=== PATIENT | male | born 1955 | race Caucasian/White ===

== ENCOUNTER 2019-07-20 07:32 | Outpatient (CLI) | payer BC, SELFPAY ==
--- NOTE | 2019-07-20 07:52 | NMCV_ITS ---
NM maria elena perf SPECT r/s* [id number] José Cadena Age: 64 Gender: M : 1955 Exam Date: 07/20/2019 08:27 Ordering Phys: Ebonie Appiah MD ([email or web address]) Technologist: PRATIK Duran Exam [facility]: [facility] Indications: SOB STRESS TEST Please [facility] IMAGE PROTOCOL Rest/Stress 1 Exercise Day Radiopharmaceutical Dose (mCi) Administration Site Administered by Rest: Tc-99m 10.7 IV PRATIK Aburto Sestamibi Stress:Tc-99m 32.6 IV PRATIK Aburto Sestamibi Rest: 20-Jul-2019 60 Discovery 630 Stress: 20-Jul-2019 15 Discovery 630 Radiopharmaceutical was injected at 86 % maximum heart rate. Images obtained in supine and prone position. SPECT RESULTS Technical Quality: Excellent Raw Data Analysis: Normal Image Corrections: No attenuation or motion correction applied Summed Stress Score: 2 Summed Rest Score: 3 Summed Difference Score: 0 PERFUSION FINDINGS Medium-sized area of persistently decreased tracer uptake noted in basal to distal inferior wall suggestive of old myocardial infarction versus scarring. Medium-sized area of decreased tracer uptake noted in basal to mid anterior wall on the rest images which improved over stress images suggestive of artifact. FUNCTIONAL RESULTS (calculated via Gated SPECT) Stress Image LV EF (%): 57 Stress EDV (mL):89 TID: 0.83 Stress ESV (mL):38 Rest Image LV EF (%): 57 FUNCTIONAL FINDINGS: There is normal left ventricular systolic function. IMPRESSIONS Medium-sized area of persistently decreased tracer uptake noted in basal to distal inferior wall suggestive of old myocardial infarction versus scarring. Medium-sized area of decreased tracer uptake noted in basal to mid anterior wall on the rest images which improved over stress images suggestive of artifact. This study is negative for ischemia. EKG segment will be documented separately. Ebonie Appiah MD (Electronically Signed) Final Date: 20 Jul 2019 17:46 S
--- NOTE | 2019-07-20 07:52 | ECG_ITS ---
NAME OF STUDY: EXERCISE SESTAMIBI STRESS TEST INDICATION: Chest Pain EXERCISE DATA: The patient was exercised by Carlin protocol. Baseline heart rate was 70 beats per minute. Baseline blood pressure was 137/81 millimeters of mercury. Target heart rate was 157 beats per minute. Maximum heart rate achieved was 143, which was 91 % of the target heart rate. Maximum blood pressure was 210/81 millimeters of mercury. Total exercise time was 5 minutes 30 seconds. Maximum METs achieved was 7.0, maximum VO2 was 24.5. The reason for ending the test was maximum effort achieved. The patient complained of shortness of breath during the stress test, which then resolved at the end of the test. ELECTROCARDIOGRAM: BASELINE: Sinus rhythm, normal axis, no significant ST-T changes at the baseline noted. EXERCISE: At the peak exercise level, no significant ST-T changes suggestive of ischemia noted. RECOVERY: During the recovery period, heart rate dropped appropriately. No significant ST-T changes in the recovery suggestive of ischemia noted. CONCLUSION: 1. Exercise capacity fair. 2. Heart rate response was appropriate. 3. Blood pressure response was hypertensive. 4. Symptoms not suggestive of ischemia. 5. Electrocardiogram portion of the stress test was not suggestive of ischemia. 6. Nuclear scan will be documented separately. Electronically Signed On 07-21-2019 19:07:22 CDT by Ebonie Appiah M.D. [id number]
[2019-07-20 07:53] VITALS: BMI 27.7
[2019-07-20 09:24] VITALS: BP 189/72; PULSE 90
== END 2019-07-20 07:33 | disposition home or self-care (01) ==
LOC: RAD 07:38
PROVIDERS: PCP Family Medicine; Visit Provider Internal Medicine Cardiovascular Disease
DX: R07.9 Chest pain, unspecified (principal); R06.02 Shortness of breath
CPT/HCPCS: 78452; 93017; A9500

== ENCOUNTER 2019-07-24 11:00 | Outpatient (CLI) | payer BC, SELFPAY ==
--- NOTE | 2019-07-24 11:06 | USCV_ITS ---
José Cadena Age: 64 Gender: M : 1955 Exam Date: 07/24/2019 11:16 Ordering Phys: Ebonie Appiah MD ([email or web address]) Technologist: Pooja Rock [place] [facility] [place]: SOB BP: 110 / 63 HR: 75 Rhythm: Sinus Technical Quality: Adequate MEASUREMENTS (Male / Female) Normal Values 2D ECHO LV Chamber Size 3.8 cm RV Chamber Size 3.6 cm LVOT Diameter 2.0 cm LV Ejection Fraction MOD 2C 62.4 % LV Ejection Fraction 2C AL 61.9 % LA Diameter 4.3 cm LA Width 3.7 cm LA Height 4.8 cm RA Width 3.8 cm RA Height 3.2 cm Aorta at Sinotubular Diameter 3.0 cm M-MODE LV Diastolic Diameter MM 5.4 cm 4.2 - 5.9 / 3.9 - 5.3 cm LV Systolic Diameter MM 3.4 cm LV Ejection Fraction MM Teich 66.6 % IVS Diastolic Thickness MM 0.7 cm 0.6 - 1.0 / 0.6 - 0.9 cm IVS Systolic Thickness MM 0.9 cm LVPW Diastolic Thickness MM 0.9 cm 0.6 - 1.0 / 0.6 - 0.9 cm LVPW Systolic Thickness MM 1.4 cm Aortic Annulus Diameter 3.6 cm LA Ao Ratio MM 1.2 MV E Point Septal Separation 1.1 cm DOPPLER AV Peak Velocity 119.0 cm/s LVOT Peak Velocity 94.0 cm/s AV Area Cont Eq vti 2.6 cm squared AV Area Cont Eq pk 2.6 cm squared MV Area PHT 3.5 cm squared Mitral E to A Ratio 1.0 MV E' Velocity 12.0 cm/s Mitral E to MV E' Ratio 6.7 Mitral E to LV E' Lateral Ratio 6.2 Mitral E to LV E' Septal Ratio 7.2 TR Peak Velocity 188.0 cm/s TR Peak Gradient 14.2 mmHg TV Peak E Velocity 46.0 cm/s PV Peak Velocity 97.0 cm/s RV Acceleration Time 0.1 s RV Ejection Time 0.4 s RV AcT/ET 0.3 FINDINGS Left Ventricle Normal left ventricular cavity size. Normal left ventricular systolic function. No regional wall motion abnormalities. Left ventricular ejection fraction is estimated at 55 %. Grade I/IV diastolic dysfunction (abnormal relaxation filling pattern), normal to mildly elevated filling pressures. Right Ventricle The right ventricle is normal in size and function. RVSP could not be calculated due to incomplete tricuspid regurgitation velocity profile. Right Atrium The right atrium is normal in size. Left Atrium The left atrium is normal in size. Mitral Valve Mildly thickened mitral valve. No mitral valve stenosis. Mild mitral valve regurgitation. Aortic Valve Mild aortic valve calcification. No aortic valve stenosis. Trace aortic valve regurgitation. Tricuspid Valve Structurally normal tricuspid valve without significant stenosis or regurgitation. Pulmonary artery systolic pressure is normal. Pulmonic Valve Structurally normal pulmonic valve without significant stenosis. There is no pulmonic regurgitation. Pericardium Normal pericardium without effusion. Aorta Normal ascending aorta dimension. CONCLUSIONS 1-Normal left ventricular cavity size. Normal left ventricular systolic function. No regional wall motion abnormalities. Left ventricular ejection fraction is estimated at 55 %. Grade I/IV diastolic dysfunction (abnormal relaxation filling pattern), normal to mildly elevated filling pressures. 2-Mildly thickened mitral valve. No mitral valve stenosis. Mild mitral valve regurgitation. 3-Mild aortic valve calcification. No aortic valve stenosis. Trace aortic valve regurgitation. 4-Structurally normal tricuspid valve without significant stenosis or regurgitation. Pulmonary artery systolic pressure is normal. 5-There is no pericardial effusion. 6-The right ventricle is normal in size and function. RVSP could not be calculated due to incomplete tricuspid regurgitation velocity profile. 7-Right atrial pressure is around 5 mm of mercury. 8-When compared to the prior echocardiogram dated 02/23/2015 there appeared to be mild mitral valve regurgitation Ebonie Appiah MD (Electronically Signed) Final Date: 24 July 2019 17:43 S
== END 2019-07-24 11:01 | disposition home or self-care (01) ==
LOC: RAD 11:04
PROVIDERS: PCP Family Medicine; Visit Provider Internal Medicine Cardiovascular Disease
DX: R06.02 Shortness of breath (principal); I08.0 Rheumatic disorders of both mitral and aortic valves
CPT/HCPCS: 93306

== ENCOUNTER 2019-09-29 12:44 | Outpatient (CLI) | payer BC, SELFPAY ==
--- NOTE | 2019-09-29 13:00 | MR_ITS ---
WS: [id number] MRI LEFT KNEE HISTORY: M25.562 Pain in left knee COMPARISON: None available. Anterior cruciate ligament: Increased signal throughout the ACL. Partial tear suspected in the proxim al tendon. There is loss of the normal fibers of the ligament. Posterior cruciate ligament: Intact. Medial collateral ligament: Increased fluid signal on both sides of the MCL. Partial tear of the prox imal medial collateral ligament. Posterior lateral corner structures: Intact. Medial menisci: Abnormal signal along the superior articular surface of the posterior horn extends to wards the free edge. Blunting of the free edge. Lateral meniscus: Intact. Normal signal, size and shape. Extensor mechanism: Distal quadriceps tendon and patellar tendons are intact. Fluid and soft tissue: There is a large suprapatellar joint effusion. Large amount of edema surrounds the knee. There is fluid extending into the infrapatellar fat pad and a large complex Kincaid's cyst. Kincaid's cyst may be partially ruptured as there is fluid extending distal from the form Kincaid's cyst. Osseous and articular structures: Patellofemoral compartment: Normal. Medial compartment: Mild narrowing of the medial compartment. Increased signal in the central meniscu s corresponds to the abnormal signal in the posterior horn involving the free edge. There is thinning and fissuring of the cartilage with only minimal joint space narrowing. No marrow edema. Lateral compartment: Full-thickness cartilage defect along the central femoral condyle and central ti bial plateau. Small subchondral cyst in the lateral tibial metaphysis. Lobulated complex cystic mass at the articulation between the proximal tibia and fibula measures 13 m m. MR/MR knee LT wo con* [id number] IMPRESSION: 1. Abnormal signal in the ACL consistent proximal partial tear. 2. Large joint effusion with a large amount of soft tissue edema extending int o the infrapatellar fat pad. 3. Large Kincaid's cyst with partial rupture. 4. Abnormal posterior horn medial meniscus consistent with significant fraying and tears along the superior articular surface extending to the free edge. 5. Small osteochondral defects weightbearing surface of the lateral femoral co ndyle and adjacent lateral tibial plateau. 6. Partial tear proximal MCL. 7. Complex ganglion versus bursal distention between the proximal tibiofibular articulation.
== END 2019-09-29 12:45 | disposition home or self-care (01) ==
PROVIDERS: PCP Family Medicine; Visit Provider Nurse Practitioner Family
DX: M25.462 Effusion, left knee (principal); R60.0 Localized edema; M71.22 Synovial cyst of popliteal space [Baker], left knee; S83.419A Sprain of medial collateral ligament of unspecified knee, initial encounter; X58.XXXA Exposure to other specified factors, initial encounter
CPT/HCPCS: 73721

== ENCOUNTER 2019-11-13 14:08 | Outpatient (CLI) | payer BC, SELFPAY ==
--- NOTE | 2019-11-13 14:00 | CT_ITS ---
WS: [id number] CT CHEST TECHNIQUE: Noncontrast CT of the chest with coronal and sagittal reformatted images. CLINICAL INFORMATION: right pleural effusion COMPARISON: None. DLP: 918.[address] scans at [facility] use at least one of these dose optimization techniques: automat ed exposure control; mA and/or kV adjustment per patient size (includes targeted exams where dose is matched to clinical indication); or iterative reconstruction. FINDINGS: Both lungs are well aerated. No acute pulmonary infiltrates. Subsegmental atelectasis right lower lob e. Small right pleural effusion. Acute appearing fracture right fifth rib anterolaterally. No displac ement. Thyroid gland is normal. No mediastinal or hilar lymphadenopathy. Coronary calcification. Cholelithia sis. Adrenal glands are normal. No axillary lymphadenopathy. Subpleural nodule right middle lobe josh uring 4 mm. Additional tiny noncalcified nodule left lower lobe measuring 3 mm. Postoperative changes right shoulder. CT/CT chest wo con [id number] IMPRESSION: 1. Small right pleural effusion with subsegmental atelectasis right lower lobe . 2. Acute appearing nondisplaced right fifth rib fracture anteriorly and latera lly. 3. Mild chronic emphysematous changes. 4. No mediastinal or hilar lymphadenopathy. 5. Cholelithiasis partially visualized. 6. A few subcentimeter noncalcified pulmonary nodules. Recommend 12 month foll ow-up.
== END 2019-11-13 14:09 | disposition home or self-care (01) ==
LOC: RAD 14:12
PROVIDERS: PCP Family Medicine; Visit Provider Registered Nurse
DX: J90 Pleural effusion, not elsewhere classified (principal); S22.31XA Fracture of one rib, right side, initial encounter for closed fracture; X58.XXXA Exposure to other specified factors, initial encounter; K80.20 Calculus of gallbladder without cholecystitis without obstruction
CPT/HCPCS: 71250

== ENCOUNTER → 2020-04-01 08:36 | Outpatient (BNVA) | payer BC, SELFPAY | PROVIDERS: PCP Family Medicine; Visit Provider Podiatrist Foot & Ankle Surgery | DX: M79.671 Pain in right foot (principal); M79.672 Pain in left foot; M77.32 Calcaneal spur, left foot; M77.31 Calcaneal spur, right foot | CPT/HCPCS: 73630 ==

== ENCOUNTER 2020-10-03 09:04 | Day surgery (SDC) | payer BC, SELFPAY ==
[2020-10-01 09:33] VITALS: BMI 28.5
--- NOTE | 2020-10-03 09:29 | ANES.PREANE2 ---
Pre-Anesthetic Assessment Pre-Anesthetic Assessment: Height/Weight: Height 1.83 m Weight 95.254 kg Preop Diagnosis: screening colonoscopy Proposed Procedure: Operation Date: 10/03/20 10:30 Proposed Procedures p Colonoscopy 93740 Z12.11(Not Applicable) - Xiang Ferguson MD Was Beta Anel taken within 24 hours: Yes Was Clonidine taken within 24 hours: N/A Social: Social History: No alcohol and No tobacco Exam: Pre-Anes Outpt Exam: alert, oriented x 3, clear to auscultation bilaterally and regular rate & rhythm Airway: Submandibular: WNL Cervical ROM: WNL MP: 2 Dentition: Full CV/HEM: CV/HEM: CAD (stent) and HTN Metabolic: Metabolic: Hyperlipidemia Anesthetic Plan: ASA status: 3 Anesthesia: MAC Risk of > 500 ml blood loss (7ml/kg in children): No PFSH Anesthesia PFSH: Medical History ASHD (arteriosclerotic heart disease) HTN (hypertension) Hyperlipidemia Myocardial infarction Surgical History History of bilateral inguinal hernia repair History of colonoscopy S/P carpal tunnel release S/P knee surgery S/P PTCA (percutaneous transluminal coronary angioplasty) S/P shoulder surgery Family History Brother Diabetes Father CAD (coronary artery disease) Mother FHx: alpha 1 antitrypsin deficiency Social History Smoking and tobacco status: never smoked Second hand smoke exposure: No Alcohol intake: never Lives independently: Yes Household members: spouse Marital status: service: No Current occupational status: employed Current occupational exposures/hazards: No History of recent travel: No Current gender identity: Male Data Anesthesia Cardiac Studies: No Data to Display
[2020-10-03 09:32] VITALS: BP 132/92; PULSE 72; RESP 18; TEMP 36.5; O2SAT 98
--- NOTE | 2020-10-03 09:41 | W.PM.OPSFHP ---
Same Day Surgery H&P Indication for Procedure/HPI DATE OF PROCEDURE: October 03, 2020 CHIEF COMPLAINT/INDICATIONFOR SURGICAL PROCEDURE: screening colonoscopy PREOP DIAGNOSIS: screening colonoscopy PLANNED PROCEDRUE: Operation Date: 10/03/20 10:30 Proposed Procedures p Colonoscopy 97745 Z12.11(Not Applicable) - Xiang Ferguson MD Medications/Allergies* Home Medications Medication Instructions Recorded Confirmed Type aspirin 325 mg tablet 325 mg PO DAILY 05/10/19 10/03/20 History multivitamin 1 cap PO DAILY 05/10/19 10/03/20 History nitroglycerin 0.4 mg sublingual 0.4 mg SUBLINGUAL Q5M PRN 05/10/19 10/01/20 History tablet losartan 25 mg tablet 12.5 - 25 mg PO DAILY tab 09/19/20 10/03/20 History Allergies/Adverse Reactions Allergy/AdvReac Type Severity Reaction Status Date / Time No Known Allergies Allergy Verified 07/26/20 08:20 Pertinent History/Comorbid Conditions* Medical History (Updated 09/23/20 @ 23:06 by Ebonie Appiah MD) ASHD (arteriosclerotic heart disease) HTN (hypertension) Hyperlipidemia Myocardial infarction Surgical History (Updated 07/26/20 @ 08:29 by Xiang Ferguson MD) History of bilateral inguinal hernia repair History of colonoscopy S/P carpal tunnel release S/P knee surgery S/P PTCA (percutaneous transluminal coronary angioplasty) S/P shoulder surgery Family History (Updated 05/10/19 @ 08:49 by Meenu Almonte RN) FHx: alpha 1 antitrypsin deficiency Mother Diabetes Brother CAD (coronary artery disease) Father Social History Smoking and tobacco status: never smoked Second hand smoke exposure: No Alcohol intake: never Lives independently: Yes Household members: spouse Marital status: service: No Current occupational status: employed Current occupational exposures/hazards: No History of recent travel: No Current gender identity: Male Pertinent Exam Findings alert, oriented x 3 and regular rate & rhythm Recommendations Surgery/Procedure today Coding Level of Care Code Acute Pneumatic Deicer Inspector for Flavio Argueta
[2020-10-03] MEDS: sodium chloride 0.9% 1,000 ML 30 ML IV (09:52)
[2020-10-03 11:17] VITALS: BP 120/69; PULSE 70; RESP 16; TEMP 36.6; O2SAT 93
--- NOTE | 2020-10-03 11:29 | ANE.PACU2 ---
Inpatient post-anesthesia follow up: Airway intact: Yes Vital signs: Temperature 97.9 F Pulse Rate 70 Respiratory Rate 16 Blood Pressure 120/69 Pulse Oximetry 93 Oxygen Delivery Me thod Room Air Oxygen Flow Rate Fraction of Inspir ed Oxygen Hydration adequate: Yes Mental status: Baseline
[2020-10-03 11:32] VITALS: BP 137/86; PULSE 66; RESP 16; TEMP 36.5; O2SAT 99
--- NOTE | 2020-10-03 14:39 | ANE.PACU2 ---
Inpatient post-anesthesia follow up: Airway intact: Yes Vital signs: Temperature 97.7 F Pulse Rate 66 Respiratory Rate 16 Blood Pressure 137/86 Pulse Oximetry 99 Oxygen Delivery Me thod Room Air Oxygen Flow Rate Fraction of Inspir ed Oxygen Hydration adequate: Yes Nausea and vomiting: No Pain level: 1 Mental status: Baseline
== END 2020-10-03 11:55 | disposition home or self-care (01) ==
PROVIDERS: PCP Family Medicine; Visit Provider Surgery
PROC: 0DJD8ZZ Inspection of Lower Intestinal Tract, Via Natural or Artificial Opening Endoscopic (ICD-10-PCS; CPT 45378; principal; 2020-10-03 10:30)
DX: Z12.11 Encounter for screening for malignant neoplasm of colon (principal); D12.5 Benign neoplasm of sigmoid colon; I10 Essential (primary) hypertension; E78.5 Hyperlipidemia, unspecified; I25.2 Old myocardial infarction; I25.10 Atherosclerotic heart disease of native coronary artery without angina pectoris; Z95.5 Presence of coronary angioplasty implant and graft; K57.30 Diverticulosis of large intestine without perforation or abscess without bleeding
CPT/HCPCS: 45385; 88305; 96360; 96361; J2704; J7030

== ENCOUNTER 2020-12-03 07:09 | Outpatient (CLI) | payer BC, SELFPAY ==
[2020-12-03 07:35] VITALS: BMI 28.5
--- NOTE | 2020-12-03 08:51 | ECG_ITS ---
[facility] Test Date: 2020-12-03 Pat Name: José Cadena Department: Room: Gender: Male Credit Balance Specialist: : 1955 Requested By: Ebonie Appiah Order Number: [id number] Kady MD: Jazmyn Novak M.D. Interpretive Statements Name of study: Exercise sestamibi stress test Indication: Chest pain, Shortness of breath Procedural details: Baseline blood pressure of 152/87 mm Hg, heart rate 80 beats per minute and oxygen saturation of 96%. EKG showed normal sinus rhythm, normal axis with non specific T wave inversion. ??? The patient exercised for 5 minutes and 47 seconds on a [standard Carlin protocol]. Patient attained a maximum heart rate of 150 beats per minute( 96 % of the maximum predicted heart rate) with a blood pressure at the peak exercise of 208/88 mm Hg. The EKG at the peak exercise revealed sinus tachycardia with no significant ST-T wave changes. Patient did not have any chest pain or any significant arrhythmis with the exercise.??? During the recovery phase, there were no new changes. ??? Blood pressure at the end of the recovery phase was 153/76 mm Hg with a heart rate of 86 beats per minute and oxygen saturstion of 98%. ??? CONCLUSION: 1. Normal EKG response to treadmill exercise. 2. No exercise-induced chest pain or cardiac arrhythmia] 3. Good exercise tolerance, attained a maximum of 7 METs. Maximum VO2 of 24.5 ml/kg/min. 4. Baseline hypertension with normal response to exercise. 5. Perfusion scan will be documented separately. Electronically Signed On 12-17-2020 12:18:29 CDT by Jazmyn Novak M.D. [id number]
--- NOTE | 2020-12-03 08:52 | NMCV_ITS ---
NM maria elena perf SPECT r/s* [id number] José Cadena Age: 65 Gender: M : 1955 Exam Date: 12/03/2020 08:49 Ordering Phys: Ebonie Appiah MD ([email or web address]) Technologist: PRATIK Duran Exam Location: [facility] Indications: SHORTNESS OF BREATH STRESS TEST [facility] IMAGE PROTOCOL Rest/Stress 1 Exercise Day Radiopharmaceutical Dose (mCi) Administration Site Administered by Rest: Tc-99m 11.0 IV PRATIK Aburto Sestamikatia Stress:Tc-99m 32.7 IV PRATIK Aburto Sestamikatia Rest: 03-Dec-2020 60 Discovery 630 Stress: 03-Dec-2020 30 Discovery 630 Radiopharmaceutical was injected at 95 % maximum heart rate. Images obtained in supine and prone position. SPECT RESULTS Technical Quality: Excellent Raw Data Analysis: Normal Image Corrections: No attenuation or motion correction applied Summed Stress Score: 4 Summed Rest Score: 6 Summed Difference Score: 1 PERFUSION FINDINGS There is a small incisor. Defect noted inferior wall that improves on stress. This is secondary to attenuation artifact. No evidence of ischemia seen. FUNCTIONAL RESULTS (calculated via Gated SPECT) Stress Image LV EF (%): 64 Stress EDV (mL):89 TID: 1.08 Stress ESV (mL):32 FUNCTIONAL FINDINGS: There is normal left ventricular systolic function. IMPRESSIONS 1. Normal myocardial perfusion imaging with no evidence of ischemia. There is small sized perfusion defect in the inferior wall consistent with attenuation artifact 2. LV systolic function is normal Jitendra Chance MD (Electronically Signed) Final Date: 04 December 2020 11:45 S
[2020-12-03 10:14] VITALS: BP 153/76; PULSE 86
== END 2020-12-03 07:10 | disposition home or self-care (01) ==
PROVIDERS: PCP Family Medicine; Visit Provider Internal Medicine Cardiovascular Disease
DX: R06.02 Shortness of breath (principal)
CPT/HCPCS: 78452; 93017; A9500

== ENCOUNTER → 2021-08-07 12:33 | Outpatient (BNVA) | payer MEDICARE, SELFPAY | PROVIDERS: PCP Family Medicine; Visit Provider Internal Medicine | DX: Z01.818 Encounter for other preprocedural examination (principal); I25.10 Atherosclerotic heart disease of native coronary artery without angina pectoris; I10 Essential (primary) hypertension; E78.49 Other hyperlipidemia | CPT/HCPCS: 99214 ==

== ENCOUNTER → 2021-09-30 07:30 | Outpatient (BNVA) | payer MEDICARE, SELFPAY | PROVIDERS: PCP Family Medicine; Visit Provider Family Medicine | DX: I10 Essential (primary) hypertension (principal); Z01.818 Encounter for other preprocedural examination; E78.49 Other hyperlipidemia; I25.10 Atherosclerotic heart disease of native coronary artery without angina pectoris | CPT/HCPCS: 80053; 80061 ==

== ENCOUNTER → 2022-03-09 15:26 | Outpatient (BNVA) | payer MEDICARE, SELFPAY | PROVIDERS: PCP Family Medicine; Visit Provider Internal Medicine | DX: I25.10 Atherosclerotic heart disease of native coronary artery without angina pectoris (principal); I10 Essential (primary) hypertension; E78.49 Other hyperlipidemia | CPT/HCPCS: 99214 ==

== ENCOUNTER → 2022-04-02 08:03 | Outpatient (BNVA) | payer MEDICARE, SELFPAY | PROVIDERS: PCP Family Medicine; Visit Provider Family Medicine | DX: N40.0 Benign prostatic hyperplasia without lower urinary tract symptoms (principal); I25.10 Atherosclerotic heart disease of native coronary artery without angina pectoris; I10 Essential (primary) hypertension; E78.49 Other hyperlipidemia | CPT/HCPCS: 80053; 80061; 84153; 85025 ==

== ENCOUNTER → 2022-08-28 11:42 | Outpatient (BNVA) | payer MEDICARE, SELFPAY | PROVIDERS: PCP Family Medicine; Visit Provider Internal Medicine | DX: I25.10 Atherosclerotic heart disease of native coronary artery without angina pectoris (principal); I10 Essential (primary) hypertension; E78.49 Other hyperlipidemia; I25.2 Old myocardial infarction | CPT/HCPCS: 99213 ==

== ENCOUNTER → 2022-09-24 10:54 | Outpatient (BNVA) | payer MEDICARE, SELFPAY | PROVIDERS: PCP Family Medicine; Visit Provider Family Medicine | DX: I10 Essential (primary) hypertension (principal); E78.5 Hyperlipidemia, unspecified | CPT/HCPCS: 80053; 80061; 85025 ==

== ENCOUNTER 2022-09-30 20:00 | Outpatient (CLI) | payer MEDICARE, SELFPAY | END 2022-09-30 20:01 | disposition home or self-care (01) | LOC: SLEEP 10-01 05:29 | PROVIDERS: PCP Family Medicine; Visit Provider Family Medicine | DX: G47.33 Obstructive sleep apnea (adult) (pediatric) (principal); R40.0 Somnolence; R06.83 Snoring | CPT/HCPCS: 95810 ==

== ENCOUNTER → 2023-03-31 09:24 | Outpatient (BNVA) | payer MEDICARE, SELFPAY | PROVIDERS: PCP Family Medicine; Visit Provider Family Medicine | DX: I25.10 Atherosclerotic heart disease of native coronary artery without angina pectoris (principal); I10 Essential (primary) hypertension; E78.5 Hyperlipidemia, unspecified | CPT/HCPCS: 80053; 80061; 84153; 85025 ==

== ENCOUNTER → 2023-06-10 08:59 | Outpatient (BNVA) | payer MEDICARE, SELFPAY | PROVIDERS: PCP Family Medicine; Visit Provider Nurse Practitioner Family | DX: I10 Essential (primary) hypertension (principal); I25.10 Atherosclerotic heart disease of native coronary artery without angina pectoris | CPT/HCPCS: 99214 ==

== ENCOUNTER → 2023-09-28 08:03 | Outpatient (BNVA) | payer MEDICARE, SELFPAY | PROVIDERS: PCP Family Medicine; Visit Provider Family Medicine | DX: I10 Essential (primary) hypertension (principal); I25.10 Atherosclerotic heart disease of native coronary artery without angina pectoris; E78.49 Other hyperlipidemia; G47.30 Sleep apnea, unspecified | CPT/HCPCS: 80053; 80061; 85025 ==

== ENCOUNTER 2024-02-17 10:02 | Outpatient (CLI) | payer MEDICARE, SELFPAY ==
--- NOTE | 2024-02-17 10:06 | XRR_ITS ---
PROCEDURE INFORMATION: Exam: XR Right Tibia and Fibula Exam date and time: 02/17/2024 10:13 AM Age: 69 years old Clinical indication: Injury or trauma; Other: Kicked by cow; Swelling (edema); Knee and lower leg; Right; Additional info: Pain after kick by cow TECHNIQUE: Imaging protocol: Radiologic exam of the right tibia and fibula. Views: 2 views. COMPARISON: [place] [id number] ORTH 04/01/2020 8:42 AM FINDINGS: Bones/joints: Nondisplaced fracture of the medial femoral condyle. Status post right knee arthroplasty. Hardware is intact. Soft tissues: Normal. XR/XR tibia fibula RT 2V [id number] IMPRESSION: Nondisplaced fracture of the medial femoral condyle.
--- NOTE | 2024-02-17 10:06 | XRR_ITS ---
PROCEDURE INFORMATION: Exam: XR Right Knee Exam date and time: 02/17/2024 10:13 AM Age: 69 years old Clinical indication: Injury or trauma; Other: Kicked by cow; Swelling (edema); Lower leg; Right; Additional info: Right knee pain after kick by cow TECHNIQUE: Imaging protocol: Radiologic exam of the right knee. Views: 3 views. COMPARISON: CR XR tibia fibula RT 2V [id number] 02/17/2024 10:13 AM FINDINGS: Bones/joints: Nondisplaced fracture of the medial femoral condyle. Status post right knee arthroplasty. Hardware is intact. Soft tissues: Normal. XR/XR knee RT 3V* [id number] IMPRESSION: Nondisplaced fracture of the medial femoral condyle.
== END 2024-02-17 10:03 | disposition home or self-care (01) ==
LOC: RAD 10:04
PROVIDERS: PCP Family Medicine; Visit Provider Family Medicine
DX: S72.434A Nondisplaced fracture of medial condyle of right femur, initial encounter for closed fracture (principal); W55.22XA Struck by cow, initial encounter; Z96.651 Presence of right artificial knee joint
CPT/HCPCS: 73562; 73590

== ENCOUNTER → 2024-03-15 16:27 | Outpatient (BNVA) | payer MEDICARE, SELFPAY | PROVIDERS: PCP Family Medicine; Visit Provider Internal Medicine Cardiovascular Disease | DX: I25.10 Atherosclerotic heart disease of native coronary artery without angina pectoris (principal); I10 Essential (primary) hypertension; E78.49 Other hyperlipidemia; Z87.820 Personal history of traumatic brain injury; I25.2 Old myocardial infarction | CPT/HCPCS: 99214 ==

== ENCOUNTER → 2024-03-30 08:09 | Outpatient (BNVA) | payer MEDICARE, SELFPAY | PROVIDERS: PCP Family Medicine; Visit Provider Family Medicine | DX: E78.49 Other hyperlipidemia (principal); R35.1 Nocturia; I10 Essential (primary) hypertension; G47.30 Sleep apnea, unspecified | CPT/HCPCS: 80053; 80061; 84153 ==

== ENCOUNTER → 2024-09-26 08:10 | Outpatient (BNVA) | payer MEDICARE, SELFPAY | PROVIDERS: PCP Family Medicine; Visit Provider Family Medicine | DX: I10 Essential (primary) hypertension (principal); R73.9 Hyperglycemia, unspecified; N18.9 Chronic kidney disease, unspecified | CPT/HCPCS: 80053; 80061; 83036; 85025 ==

== ENCOUNTER → 2024-10-04 14:11 | Outpatient (BNVA) | payer MEDICARE, SELFPAY | PROVIDERS: PCP Family Medicine; Visit Provider Internal Medicine Cardiovascular Disease | DX: I25.10 Atherosclerotic heart disease of native coronary artery without angina pectoris (principal); I10 Essential (primary) hypertension; G47.30 Sleep apnea, unspecified; R53.83 Other fatigue; Z79.82 Long term (current) use of aspirin; Z98.61 Coronary angioplasty status; I25.2 Old myocardial infarction | CPT/HCPCS: 99214 ==

== ENCOUNTER 2024-12-08 12:39 | Outpatient (CLI) | payer MEDICARE, SELFPAY ==
[2024-12-08] MEDS: iohexol 350 mg/mL 500 mL Btl (per mL) IV (12:50)
[2024-12-08] MEDS: iohexol 350 mg/mL 500 mL Btl (per mL) PO (12:50)
--- NOTE | 2024-12-08 14:00 | CT_ITS ---
WS: [id number] CT ABDOMEN AND PELVIS WITH CONTRAST HISTORY: abd pain, epigastric pain for 2 to 3 months. TECHNIQUE: Imaging performed of the abdomen and pelvis with IV contrast. Single phase imaging of the abdomen. Coronal and sagittal reformats are submitted. All CT scans at [facility] use at least one of these dose optimization techniques: automated exposure control; mA and/or kV adjustment per patient size (includes targeted exams where dose is matched to clinical indication); or iterative reconstruction. IV CONTRAST: Omnipaque 350; 100 mL IV. Oral contrast: Yes. DLP: 662.83 mGy.cm COMPARISON: None available. Lower thorax: Lung bases are clear. Heart is normal size. No hiatal hernia. Liver/biliary system: Normal size with no intrahepatic dilatation. Gallbladder: Slightly contracted gallbladder with stones. No adjacent inflammation. Common bile duct is normal size. Pancreas: Normal size pancreas and pancreatic duct. No adjacent inflammation. Spleen: Normal size with granulomata. Adrenal glands: Normal. Right kidney: Normal. Left kidney: Normal. Aorta: Mild atherosclerosis with no aneurysm. Lymphadenopathy: None. Free fluid: None. GI tract: Stomach is distended with food products and oral contrast. Moderate sized duodenal diverticulum. No small bowel obstruction. Innumerable diverticula throughout the colon. Colon is tortuous with mild diffuse constipation. No acute colitis identified or obstruction. Normal appendix. Abdominal wall: Unremarkable abdominal wall. No hernia. Pelvis: Urinary bladder is minimally distended. No free fluid or adenopathy in the pelvis. Patent fat-containing LEFT inguinal canal. Bones: Unremarkable. CT/CT abdomen pelvis w con* [id number] IMPRESSION: 1. Cholelithiasis without acute cholecystitis. Gallbladder is slightly contrac reese. No adjacent inflammation. 2. Diffuse del castillo colonic diverticulosis. No evidence for acute diverticulitis. 3. Normal appendix. 4. No renal obstruction.
[2024-12-08 14:36] LABS: Blood Urea Nitrogen 17 mg/dL (8-23)
== END 2024-12-08 12:40 | disposition home or self-care (01) ==
LOC: RAD 12:40
PROVIDERS: PCP Family Medicine; Visit Provider Family Medicine
DX: R10.9 Unspecified abdominal pain (principal); S46.211A Strain of muscle, fascia and tendon of other parts of biceps, right arm, initial encounter; S49.91XA Unspecified injury of right shoulder and upper arm, initial encounter; W55.22XA Struck by cow, initial encounter; K80.20 Calculus of gallbladder without cholecystitis without obstruction; K82.8 Other specified diseases of gallbladder; I70.0 Atherosclerosis of aorta; K57.10 Diverticulosis of small intestine without perforation or abscess without bleeding; K57.30 Diverticulosis of large intestine without perforation or abscess without bleeding; K59.00 Constipation, unspecified; D73.89 Other diseases of spleen; M19.011 Primary osteoarthritis, right shoulder; M25.711 Osteophyte, right shoulder; R93.7 Abnormal findings on diagnostic imaging of other parts of musculoskeletal system
CPT/HCPCS: 73030; 74177; 82565; 84520; 99203

== ENCOUNTER 2024-12-26 09:35 | Outpatient (CLI) | payer MEDICARE, SELFPAY ==
--- NOTE | 2024-12-26 10:00 | NM_ITS ---
WS: [id number] NUCLEAR MEDICINE HIDA SCAN WITH GALLBLADDER EJECTION FRACTION HISTORY: Gallbladder is slightly contracted. COMPARISON: CT 12/08/2024 TECHNIQUE: The patient was intravenously injected with 7.9 mCi of TC99m Mebrofenin. Immediate imaging over the right upper quadrant was followed by 5 minute image and additional images for a total of 60 minutes. Normal uptake of radiotracer throughout the liver. Activity identified in the gallbladder at 15 minutes and well distended by 60 minutes. Activity in the proximal small bowel was seen by 30 minutes. Good washout of the radiotracer from the liver by 60 minutes. The patient then drank 8 ounces of Ensure Plus. Ejection fraction at 60 minutes was 44%. Normal GB ejection fraction is 35-75%. Post fatty meal symptoms: None. NM/NM hepatobiliary w phar* [id number] IMPRESSION: 1. Normal HIDA scan. 2. Normal gallbladder ejection fraction.
== END 2024-12-26 09:36 | disposition home or self-care (01) ==
LOC: RAD 09:36
PROVIDERS: PCP Family Medicine; Visit Provider Family Medicine
DX: K80.20 Calculus of gallbladder without cholecystitis without obstruction (principal); R93.2 Abnormal findings on diagnostic imaging of liver and biliary tract
CPT/HCPCS: 78227; A9537